=== PATIENT | male | born 1955 | race Hispanic/Latino ===

== ENCOUNTER 2018-02-03 07:31 | Observation (INO) | payer BC, OTHER ==
[2018-02-03 07:43] VITALS: BMI 27.7
--- NOTE | 2018-02-03 08:29 | CP.PCM.CON ---
History of Present Illness - History of Present Illness History of Present Illness: Patient is a 62 y/o male with no PMH, c/o of left knee pain following an injury which occurred at work on Saturday01/31/18. Dr. Nunez was consulted for orthopedic evaluation. 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 He experienced a sudden sharp pain at the posterior aspect of his knee which has progressively worsened since the time of his injury prompting his ER visit. The pain is intermittent and occasionally radiates down the posterior aspect of his leg. Weight bearing activities and stair climbing worsen his pain, while rest alleviates it. The pain is associated with swelling and he does not recall any bruising. He has taken Aleve and Tylenol with codiene without any relief of his pain. He denies any numbess or tingling down the LLE. He also denies CP/ SOB/N/V/D/NIETO/dysuria/melena. 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 Alcohol: None Home Situation {Lives}: With Family - CARDIAC Hx Cardiac Disorders: No - PULMONARY Hx Respiratory Disorders: No - NEUROLOGICAL Hx Neurological Disorder: No - HEENT Hx HEENT Problems: No - RENAL Hx Chronic Kidney Disease: No - ENDOCRINE/METABOLIC Hx Endocrine Disorders: No - HEMATOLOGICAL/ONCOLOGICAL Hx Blood Disorders: No - INTEGUMENTARY Hx Dermatological Problems: No - MUSCULOSKELETAL/RHEUMATOLOGICAL Hx Musculoskeletal Disorders: Yes Hx Back Pain: Yes - GASTROINTESTINAL Hx Gastrointestinal Disorders: Yes Other/Comment: Hiatal hernia - PSYCHIATRIC Hx Psychophysiologic Disorder: No Hx Substance Use: No - SURGICAL HISTORY Hx Surgeries: Yes Hx Cholecystectomy: Yes (open) Other/Comment: hiatal hernia repair - ANESTHESIA Hx Anesthesia: Yes Hx Anesthesia Reactions: No Hx Malignant Hyperthermia: No Has any member of the family had a problem w/ anesthesia?: No Meds Home Medications: Home Medication List Medication Instructions Recorded Confirmed Type oxyCODONE/Acetaminophen [Percocet 1 - 2 ea PO Q6 #30 tab 02/03/18 Rx 5/325 mg Tab] Allergies/Adverse Reactions: Allergies Allergy/AdvReac Type Severity Reaction Status Date / Time No Known Allergies Allergy Verified 02/03/18 07:53 - Medications Medications: none Physical Exam - Constitutional Appears: No Acute Distress - Head Exam Head Exam: ATRAUMATIC, NORMOCEPHALIC - Eye Exam Eye Exam: EOMI, Normal appearance, PERRL - ENT Exam ENT Exam: Mucous Membranes Moist - Neck Exam Neck exam: Positive for: Normal Inspection - Respiratory Exam Respiratory Exam: Clear to Auscultation Bilateral, NORMAL BREATHING PATTERN - GI/Abdominal Exam GI & Abdominal Exam: Soft. absent: Tenderness - Extremities Exam Additional comments: L knee: + tenderness medial joint line, + tenderness over hamstring tendons, + tenderness inferior pole of patella, mild swelling diffuse ROM 0-120 sensation intact S/DP/TN motor intact EHL/FHL/TA/G/Q, 4-/5 HS pedal pulses intact neg lachmans, neg ant/post drawer, neg valg/alexa stress test comp soft NT L knee: no tenderness, no effusion, no lesion, no swelling ROM 0-120 sensation intact S/DP/TN motor intact EHL/FHL/TA/G/Q/HS pedal pulses intact neg lachmans, neg ant/post drawer, neg valg/alexa stress test comp soft NT - Back Exam Back exam: paraspinal tenderness (R). absent: vertebral tenderness - Neurological Exam Neurological exam: Alert, Oriented x3 - Psychiatric Exam Psychiatric exam: Normal Affect, Normal Mood - Skin Skin Exam: Normal Color, Warm Results - Vital Signs Recent Vital Signs: Last Vital Signs Temp 97.7 F 02/03/18 07:43 Pulse 78 02/03/18 07:43 Resp 20 02/03/18 07:43 BP 145/86 02/03/18 07:43 Pulse Ox 96 02/03/18 07:43 - Labs Result Diagrams: 02/03/18 08:50 02/03/18 08:50 Assessment & Plan (1) Acute meniscal tear of left knee Assessment and Plan: Patient is a 62 y/o male with an acute meniscal tear following an injury -Dr. Nunez proposes a left knee diagnostic arthroscopy, partial medial meniscectomy, possible chondroplasty and all indicated procedures due to the patient's severe pain and limitation -Risks/ benefits and indications of the procedure were explained to the patient in detail. The patient expresses his understanding and agrees to proceed with the listed procedure -Above d/w Dr. Nunez in agreement Status: Acute Radiology Interpretation - Small Order Cutter Small Order Cutter:: Radiologist - Radiology Interpretation #2 Interpretation: MRI left knee History: Knee injury. Comparison: None available. Technique: Multi-echo multiplanar sequences were performed through the left knee without the use of intravenous contrast. Findings: Prominent thickening and heterogeneity with increased signal seen the visualized anterior cruciate ligament suggestive for a high-grade sprain with associated partial interstitial tearing. Clinical correlation. Posterior cruciate ligament is preserved. Globular increased signal seen within the posterior horn of the medial meniscus suggestive for intrasubstance degeneration and or intrasubstance partial tearing. Linear increased signal seen at the junction of the anterior horn and body of the lateral meniscus demonstrating apparent extension the articular surface demonstrated on series 7, image 25 concerning for a possible small tear. Additional blunting of tip of the body of the lateral meniscus. Medial collateral ligament is preserved. Lateral collateral ligament complex structures are preserved. Quadriceps tendon is preserved. Patellar tendon is preserved. Prominent focal cartilage thinning and loss overlying the medial patellar facet some of which extends to the subchondral bone suggestive for chondromalacia patella. Mild to moderate cartilage thinning and loss involving the medial compartment of the femorotibial joint space. Mild cartilage thinning and loss overlying the anterior aspect of the lateral femoral condyle. Small suprapatellar joint effusion. Impression: 1. Linear increased signal seen at the junction of the anterior horn and body of the lateral meniscus demonstrating apparent extension the articular surface demonstrated on series 7, image 25 concerning for a possible small tear. Additional blunting of tip of the body of the lateral meniscus. 2. Prominent thickening and heterogeneity with increased signal seen the visualized anterior cruciate ligament suggestive for a high-grade sprain with associated partial interstitial tearing. Clinical correlation. 3. Globular increased signal seen within the posterior horn of the medial meniscus suggestive for intrasubstance degeneration and or intrasubstance partial tearing. 4. Prominent focal cartilage thinning and loss overlying the medial patellar facet some of which extends to the subchondral bone suggestive for chondromalacia patella. 5. Mild to moderate cartilage thinning and loss involving the medial compartment of the femorotibial joint space. Mild cartilage thinning and loss overlying the anterior aspect of the lateral femoral condyle. 6. Small suprapatellar joint effusion. - Radiology Interpretation #3 Interpretation: PROCEDURE: Left Knee Radiographs. HISTORY: Posttraumatic left knee pain COMPARISON: None. FINDINGS: BONES: Normal. No fracture. JOINTS: No significant degenerative change. JOINT EFFUSION: None. OTHER FINDINGS: None. IMPRESSION: No acute findings related to/accounting for the clinical presentation.
[2018-02-03 08:58] LABS: BASO % 0.5 % (0.0-2.0); EOS # 0.2 K/uL (0.0-0.7); EOS % 1.8 % (0.0-4.0); HEMOGLOBIN 15.2 g/dL (12.0-18.0); LYMPH # 1.6 K/uL (1.0-4.3); LYMPH % 18.2 % (20.0-40.0); MEAN CELL VOLUME 86.5 fl (80.0-94.0); MEAN CORPUSCULAR HEMOGLOBIN 28.8 pg (27.0-31.0); MEAN CORPUSCULAR HGB CONC 33.2 g/dL (33.0-37.0); MEAN PLATELET VOLUME 9.2 fl (7.2-11.7); MONO # 0.5 K/uL (0.0-0.8); MONO % 5.8 % (0.0-10.0); NEUT # 6.6 K/uL (1.8-7.0); NEUT % 73.7 % (50.0-75.0); NRBC % 0.2 % (0.0-0.0); RBC 5.29 Mil/uL (4.40-5.90); RED CELL DISTRIBUTION WIDTH 15.3 % (11.5-14.5); WHITE BLOOD COUNT 8.9 K/uL (4.8-10.8)
[2018-02-03 09:05] LABS: INR 0.2 (0.9-1.2); PROTHROMBIN TIME 11.3 Seconds (9.8-13.1)
[2018-02-03 09:06] LABS: ALB/GLOB RATIO 1.3 (1.0-2.1); ALBUMIN 4.2 g/dL (3.5-5.0); ALT/SGPT 41 U/L (21-72); AST/SGOT 22 U/L (17-59); BLOOD UREA NITROGEN 18 mg/dl (9-20); CALCIUM 9.5 mg/dL (8.4-10.2); GFR AFRICAN-AMERICAN > 60; GFR NON-AFRICAN AMERICAN > 60
--- NOTE | 2018-02-03 09:12 | ED PDOC ---
Lower Extremity Pain/Injury Time Seen by Provider: 02/03/18 08:06 Chief Complaint (Nursing): Lower Extremity Problem/Injury Chief Complaint (Provider): Left knee pain History Per: Patient History/Exam Limitations: no limitations Onset/Duration Of Symptoms: Days (x4) Current Symptoms Are (Timing): Still Present Additional Complaint(s): Donovan Schulz is a 62 year old male, with no significant past medical history , who presents to the emergency department complaining of left knee pain onset for x4 days. Patient reports on Saturday he jumped and popped his left knee. Patient is complaining of pain to the posterior knee. He denies any paresthesias or weakness. No further medical complaints. PMD: None provided. Past Medical History Reviewed: Historical Data, Nursing Documentation, Vital Signs Vital Signs: Last Vital Signs Temp 97.7 F 02/03/18 07:43 Pulse 78 02/03/18 07:43 Resp 20 02/03/18 07:43 BP 145/86 02/03/18 07:43 Pulse Ox 96 02/03/18 07:43 - Medical History PMH: No Chronic Diseases Denies: Chronic Kidney Disease - Surgical History Surgical History: Cholecystectomy (open) - Family History Family History: States: No Known Family Hx - Social History Current smoker - smoking cessation education provided: No Alcohol: None Drugs: Denies - Home Medications Home Medications: Ambulatory Orders Medication Instructions Recorded No Known Home Med 02/03/18 - Allergies Allergies/Adverse Reactions: Allergies Allergy/AdvReac Type Severity Reaction Status Date / Time No Known Allergies Allergy Verified 02/03/18 07:53 Review of Systems ROS Statement: Except As Marked, All Systems Reviewed And Found Negative Musculoskeletal: Positive for: Leg Pain (left knee) Physical Exam - Reviewed Nursing Documentation Reviewed: Yes Vital Signs Reviewed: Yes - Physical Exam Appears: Positive for: Well, Non-toxic, No Acute Distress Head Exam: Positive for: ATRAUMATIC, NORMOCEPHALIC Skin: Positive for: Normal Color, Warm, Dry Eye Exam: Positive for: Normal appearance, EOMI, PERRL Neck: Positive for: Painless ROM Cardiovascular/Chest: Positive for: Regular Rate, Rhythm. Negative for: Murmur Respiratory: Positive for: Normal Breath Sounds. Negative for: Respiratory Distress Gastrointestinal/Abdominal: Positive for: Normal Exam, Soft. Negative for: Tenderness Back: Positive for: Normal Inspection. Negative for: L CVA Tenderness, R CVA Tenderness, Vertebral Tenderness Extremity: Positive for: Tenderness (to posterior left knee and medially). Negative for: Normal ROM (decreased ROM to left knee secondary to pain), Deformity, Swelling (or erythema) Neurologic/Psych: Positive for: Alert, Oriented. Negative for: Motor/Sensory Deficits - Laboratory Results Result Diagrams: 02/03/18 08:50 02/03/18 08:50 - ECG O2 Sat by Pulse Oximetry: 96 (RA) Pulse Ox Interpretation: Normal Medical Decision Making Medical Decision Making: Initial Impression: Left knee injury Initial Plan: --Type and screen --EKG --CMP --CBC w/ differential --PTT --PT --Chest portable [RAD] --Knee w/o contrast LEFT [mri] --Reevaluation 10:37 Left knee MRI Findings: Prominent thickening and heterogeneity with increased signal seen the visualized anterior cruciate ligament suggestive for a high-grade sprain with associated partial interstitial tearing. Clinical correlation. Posterior cruciate ligament is preserved. Globular increased signal seen within the posterior horn of the medial meniscus suggestive for intrasubstance degeneration and or intrasubstance partial tearing. Linear increased signal seen at the junction of the anterior horn and body of the lateral meniscus demonstrating apparent extension the articular surface demonstrated on series 7, image 25 concerning for a possible small tear. Additional blunting of tip of the body of the lateral meniscus. Medial collateral ligament is preserved. Lateral collateral ligament complex structures are preserved. Quadriceps tendon is preserved. Patellar tendon is preserved. Prominent focal cartilage thinning and loss overlying the medial patellar facet some of which extends to the subchondral bone suggestive for chondromalacia patella. Mild to moderate cartilage thinning and loss involving the medial compartment of the femorotibial joint space. Mild cartilage thinning and loss overlying the anterior aspect of the lateral femoral condyle. Small suprapatellar joint effusion. Impression: 1. Linear increased signal seen at the junction of the anterior horn and body of the lateral meniscus demonstrating apparent extension the articular surface demonstrated on series 7, image 25 concerning for a possible small tear. Additional blunting of tip of the body of the lateral meniscus. 2. Prominent thickening and heterogeneity with increased signal seen the visualized anterior cruciate ligament suggestive for a high-grade sprain with associated partial interstitial tearing. Clinical correlation. 3. Globular increased signal seen within the posterior horn of the medial meniscus suggestive for intrasubstance degeneration and or intrasubstance partial tearing. 4. Prominent focal cartilage thinning and loss overlying the medial patellar facet some of which extends to the subchondral bone suggestive for chondromalacia patella. 5. Mild to moderate cartilage thinning and loss involving the medial compartment of the femorotibial joint space. Mild cartilage thinning and loss overlying the anterior aspect of the lateral femoral condyle. 6. Small suprapatellar joint effusion. 10:56 CXR FINDINGS: LUNGS: No active pulmonary disease. PLEURA: No significant pleural effusion identified, no pneumothorax apparent. CARDIOVASCULAR: Cardiomegaly. No evidence of acute, significant cardiovascular disease. OSSEOUS STRUCTURES: No significant abnormalities. VISUALIZED UPPER ABDOMEN: Normal. OTHER FINDINGS: None. IMPRESSION: No active disease. 10:58 Left knee X-Ray FINDINGS: BONES: Normal. No fracture. JOINTS: No significant degenerative change. JOINT EFFUSION: None. OTHER FINDINGS: None. IMPRESSION: No acute findings related to/accounting for the clinical presentation. Scribe Attestation: Documented by Sharad Dunbar, acting as a scribe for Nayeli Andres MD Provider Scribe Attestation: All medical record entries made by the Scribe were at my direction and personally dictated by me. I have reviewed the chart and agree that the record accurately reflects my personal performance of the history, physical exam, medical decision making, and the department course for this patient. I have also personally directed, reviewed, and agree with the discharge instructions and disposition. Disposition - Disposition Forms: [employer] (Indonesian)
--- NOTE | 2018-02-03 10:39 | MRI ---
MRI left knee History: Knee injury. Comparison: None available. Technique: Multi-echo multiplanar sequences were performed through the left knee without the use of intravenous contrast. Findings: Prominent thickening and heterogeneity with increased signal seen the visualized anterior cruciate ligament suggestive for a high-grade sprain with associated partial interstitial tearing. Clinical correlation. Posterior cruciate ligament is preserved. Globular increased signal seen within the posterior horn of the medial meniscus suggestive for intrasubstance degeneration and or intrasubstance partial tearing. Linear increased signal seen at the junction of the anterior horn and body of the lateral meniscus demonstrating apparent extension the articular surface demonstrated on series 7, image 25 concerning for a possible small tear. Additional blunting of tip of the body of the lateral meniscus. Medial collateral ligament is preserved. Lateral collateral ligament complex structures are preserved. Quadriceps tendon is preserved. Patellar tendon is preserved. Prominent focal cartilage thinning and loss overlying the medial patellar facet some of which extends to the subchondral bone suggestive for chondromalacia patella. Mild to moderate cartilage thinning and loss involving the medial compartment of the femorotibial joint space. Mild cartilage thinning and loss overlying the anterior aspect of the lateral femoral condyle. Small suprapatellar joint effusion. Impression: 1. Linear increased signal seen at the junction of the anterior horn and body of the lateral meniscus demonstrating apparent extension the articular surface demonstrated on series 7, image 25 concerning for a possible small tear. Additional blunting of tip of the body of the lateral meniscus. 2. Prominent thickening and heterogeneity with increased signal seen the visualized anterior cruciate ligament suggestive for a high-grade sprain with associated partial interstitial tearing. Clinical correlation. 3. Globular increased signal seen within the posterior horn of the medial meniscus suggestive for intrasubstance degeneration and or intrasubstance partial tearing. 4. Prominent focal cartilage thinning and loss overlying the medial patellar facet some of which extends to the subchondral bone suggestive for chondromalacia patella. 5. Mild to moderate cartilage thinning and loss involving the medial compartment of the femorotibial joint space. Mild cartilage thinning and loss overlying the anterior aspect of the lateral femoral condyle. 6. Small suprapatellar joint effusion.
--- NOTE | 2018-02-03 10:58 | RAD ---
HISTORY: Medical clearance COMPARISON: No prior. FINDINGS: LUNGS: No active pulmonary disease. PLEURA: No significant pleural effusion identified, no pneumothorax apparent. CARDIOVASCULAR: Cardiomegaly. No evidence of acute, significant cardiovascular disease. OSSEOUS STRUCTURES: No significant abnormalities. VISUALIZED UPPER ABDOMEN: Normal. OTHER FINDINGS: None. IMPRESSION: No active disease.
--- NOTE | 2018-02-03 10:59 | RAD ---
PROCEDURE: Left Knee Radiographs. HISTORY: Posttraumatic left knee pain COMPARISON: None. FINDINGS: BONES: Normal. No fracture. JOINTS: No significant degenerative change. JOINT EFFUSION: None. OTHER FINDINGS: None. IMPRESSION: No acute findings related to/accounting for the clinical presentation.
[2018-02-03 12:04] VITALS: RESP 18
[2018-02-03] MEDS ORDERED: Lidocaine Hydrochloride 1% 20 ML ONE (12:47)
[2018-02-03] MEDS ORDERED: EPINEPHrine 1 mg/ml (1:1000) Inj ONE (12:47)
[2018-02-03] MEDS ORDERED: Bacitracin Ointment 30 GM TUBE ONE (12:48)
[2018-02-03] MEDS ORDERED: Lidocaine 4% (Laryng-O-Jet) Kit MM ONE (13:05)
[2018-02-03] MEDS ORDERED: Succinylcholine 200 mg/10 ml Inj IV ONE (13:05)
[2018-02-03] MEDS ORDERED: Midazolam 2 MG/2 ML VIAL ONE (13:05)
[2018-02-03] MEDS ORDERED: Propofol 10 mg/ml Inj (20 ML) ONE (13:05)
[2018-02-03] MEDS ORDERED: Dexamethasone 4 mg/1 ml ONE (13:05)
[2018-02-03] MEDS ORDERED: Rocuronium 10 mg/ml (5 ml) ONE (13:11)
[2018-02-03] MEDS ORDERED: Lactated Ringer's 1,000 ML IV ONE ×2 (13:50→14:30)
[2018-02-03] MEDS ORDERED: Sterile Water 10 ML IV ONE (14:12)
[2018-02-03] MEDS ORDERED: ePHEDrine 50 mg/ml Inj ONE (14:12)
[2018-02-03] MEDS ORDERED: Lidocaine 1% Inj (20ml) IJ ONE (14:27)
[2018-02-03] MEDS ORDERED: Oxycodone/Acetaminophen 5/325 mg Tab PO PRN (14:46)
[2018-02-03] MEDS ORDERED: Morphine 1 mg/ml preservative-free Inj(Duramorph) ONE (14:56)
[2018-02-03] MEDS ORDERED: methylPREDNISolone Depo 80 mg/ml Inj ONE (14:56)
[2018-02-03] MEDS ORDERED: Bupivacaine 0.5% Inj(30mL) ONE (14:57)
[2018-02-03] MEDS ORDERED: Bacitracin OINT 15GM TOP ONE (15:05)
[2018-02-03] MEDS ORDERED: HYDROmorphone 0.5 mg/0.5 ml ISec IVP PRN (15:27)
[2018-02-03] MEDS ORDERED: Lactated Ringer's 1,000 ML IV SCH (15:30)
--- NOTE | 2018-02-03 15:41 | CP.PCM.HP ---
History of Present Illness - History of Present Illness History of Present Illness: Orthopedic ER H&P Patient is a 62 y/o male with no PMH, c/o of left knee pain following an injury which occurred at work on Saturday01/31/18. Dr. Nunez was consulted for orthopedic evaluation. 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 He experienced a sudden sharp pain at the posterior aspect of his knee which has progressively worsened since the time of his injury prompting his ER visit. The pain is intermittent and occasionally radiates down the posterior aspect of his leg. Weight bearing activities and stair climbing worsen his pain, while rest alleviates it. The pain is associated with swelling and he does not recall any bruising. He has taken Aleve and Tylenol with codiene without any relief of his pain. He denies any numbess or tingling down the LLE. He also denies CP/ SOB/N/V/D/NIETO/dysuria/melena. 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 Alcohol: None Home Situation {Lives}: With Family - CARDIAC Hx Cardiac Disorders: No - PULMONARY Hx Respiratory Disorders: No - NEUROLOGICAL Hx Neurological Disorder: No - HEENT Hx HEENT Problems: No - RENAL Hx Chronic Kidney Disease: No - ENDOCRINE/METABOLIC Hx Endocrine Disorders: No - HEMATOLOGICAL/ONCOLOGICAL Hx Blood Disorders: No - INTEGUMENTARY Hx Dermatological Problems: No - MUSCULOSKELETAL/RHEUMATOLOGICAL Hx Musculoskeletal Disorders: Yes Hx Back Pain: Yes - GASTROINTESTINAL Hx Gastrointestinal Disorders: Yes Other/Comment: Hiatal hernia - PSYCHIATRIC Hx Psychophysiologic Disorder: No Hx Substance Use: No - SURGICAL HISTORY Hx Surgeries: Yes Hx Cholecystectomy: Yes (open) Other/Comment: hiatal hernia repair - ANESTHESIA Hx Anesthesia: Yes Hx Anesthesia Reactions: No Hx Malignant Hyperthermia: No Has any member of the family had a problem w/ anesthesia?: No Meds Home Medications: Home Medication List Medication Instructions Recorded Confirmed Type oxyCODONE/Acetaminophen [Percocet 1 - 2 ea PO Q6 #30 tab 02/03/18 Rx 5/325 mg Tab] Allergies/Adverse Reactions: Allergies Allergy/AdvReac Type Severity Reaction Status Date / Time No Known Allergies Allergy Verified 02/03/18 07:53 Physical Exam - Constitutional Appears: No Acute Distress - Head Exam Head Exam: ATRAUMATIC, NORMOCEPHALIC - Eye Exam Eye Exam: EOMI, Normal appearance, PERRL - ENT Exam ENT Exam: Mucous Membranes Moist - Respiratory Exam Respiratory Exam: Clear to Auscultation Bilateral, NORMAL BREATHING PATTERN - GI/Abdominal Exam GI & Abdominal Exam: Normal Bowel Sounds, Soft - Extremities Exam Additional comments: L knee: + tenderness medial joint line, + tenderness over hamstring tendons, + tenderness inferior pole of patella, mild swelling diffuse ROM 0-120 sensation intact S/DP/TN motor intact EHL/FHL/TA/G/Q, 4-/5 HS pedal pulses intact neg lachmans, neg ant/post drawer, neg valg/alexa stress test comp soft NT R knee: no tenderness, no effusion, no lesion, no swelling ROM 0-120 sensation intact S/DP/TN motor intact EHL/FHL/TA/G/Q/HS pedal pulses intact neg lachmans, neg ant/post drawer, neg valg/alexa stress test comp soft NT - Neurological Exam Neurological exam: Alert, Oriented x3 - Psychiatric Exam Psychiatric exam: Normal Affect, Normal Mood - Skin Skin Exam: Normal Color, Warm Results - Vital Signs Recent Vital Signs: Last Vital Signs Temp 98.3 F 02/03/18 12:47 Pulse 84 02/03/18 12:47 Resp 18 02/03/18 12:47 BP 142/91 H 02/03/18 12:47 Pulse Ox 100 02/03/18 11:58 - Labs Result Diagrams: 02/03/18 08:50 02/03/18 08:50 Labs: Laboratory Results - last 24 hr 02/03/18 02/03/18 02/03/18 08:50 08:50 08:50 WBC 8.9 RBC 5.29 Hgb 15.2 Hct 45.8 MCV 86.5 MCH 28.8 MCHC 33.2 RDW 15.3 H Plt Count 222 MPV 9.2 Neut % (Auto) 73.7 Lymph % (Auto) 18.2 L [place] % (Auto) 5.8 Eos % (Auto) 1.8 Baso % (Auto) 0.5 Neut # (Auto) 6.6 Lymph # (Auto) 1.6 [place] # (Auto) 0.5 Eos # (Auto) 0.2 Baso # (Auto) 0.0 PT 11.3 INR 0.2 L APTT 31.0 Sodium 149 H Potassium 4.6 Chloride 105 Carbon Dioxide 26 Anion Gap 23 H BUN 18 Creatinine 0.8 Est GFR ( Amer) > 60 Est GFR (Non-Af Amer) > 60 POC Glucose (mg/dL) Random Glucose 112 H Calcium 9.5 Total Bilirubin 0.6 AST 22 ALT 41 Alkaline Phosphatase 59 Total Protein 7.4 Albumin 4.2 Globulin 3.2 Albumin/Globulin Ratio 1.3 Blood Type Antibody Screen BBK History Checked 02/03/18 02/03/18 08:50 11:56 WBC RBC Hgb Hct MCV MCH MCHC RDW Plt Count MPV Neut % (Auto) Lymph % (Auto) [place] % (Auto) Eos % (Auto) Baso % (Auto) Neut # (Auto) Lymph # (Auto) [place] # (Auto) Eos # (Auto) Baso # (Auto) PT INR APTT Sodium Potassium Chloride Carbon Dioxide Anion Gap BUN Creatinine Est GFR ( Amer) Est GFR (Non-Af Amer) POC Glucose (mg/dL) 70 Random Glucose Calcium Total Bilirubin AST ALT Alkaline Phosphatase Total Protein Albumin Globulin Albumin/Globulin Ratio Blood Type O POSITIVE Antibody Screen Negative BBK History Checked No verified bt Assessment & Plan (1) Acute meniscal tear of left knee Assessment and Plan: Patient is a 62 y/o male with an acute meniscal tear following an injury -Dr. Nunez proposes a left knee diagnostic arthroscopy, partial medial meniscectomy, possible chondroplasty and all indicated procedures due to the patient's severe pain and limitation -Risks/ benefits and indications of the procedure were explained to the patient in detail. The patient expresses his understanding and agrees to proceed with the listed procedure -Above d/w Dr. Nunez in agreement Status: Acute Radiology Interpretation - Commercial Coordinator Commercial Coordinator:: Radiologist - Notes: Notes:: MRI left knee History: Knee injury. Comparison: None available. Technique: Multi-echo multiplanar sequences were performed through the left knee without the use of intravenous contrast. Findings: Prominent thickening and heterogeneity with increased signal seen the visualized anterior cruciate ligament suggestive for a high-grade sprain with associated partial interstitial tearing. Clinical correlation. Posterior cruciate ligament is preserved. Globular increased signal seen within the posterior horn of the medial meniscus suggestive for intrasubstance degeneration and or intrasubstance partial tearing. Linear increased signal seen at the junction of the anterior horn and body of the lateral meniscus demonstrating apparent extension the articular surface demonstrated on series 7, image 25 concerning for a possible small tear. Additional blunting of tip of the body of the lateral meniscus. Medial collateral ligament is preserved. Lateral collateral ligament complex structures are preserved. Quadriceps tendon is preserved. Patellar tendon is preserved. Prominent focal cartilage thinning and loss overlying the medial patellar facet some of which extends to the subchondral bone suggestive for chondromalacia patella. Mild to moderate cartilage thinning and loss involving the medial compartment of the femorotibial joint space. Mild cartilage thinning and loss overlying the anterior aspect of the lateral femoral condyle. Small suprapatellar joint effusion. Impression: 1. Linear increased signal seen at the junction of the anterior horn and body of the lateral meniscus demonstrating apparent extension the articular surface demonstrated on series 7, image 25 concerning for a possible small tear. Additional blunting of tip of the body of the lateral meniscus. 2. Prominent thickening and heterogeneity with increased signal seen the visualized anterior cruciate ligament suggestive for a high-grade sprain with associated partial interstitial tearing. Clinical correlation. 3. Globular increased signal seen within the posterior horn of the medial meniscus suggestive for intrasubstance degeneration and or intrasubstance partial tearing. 4. Prominent focal cartilage thinning and loss overlying the medial patellar facet some of which extends to the subchondral bone suggestive for chondromalacia patella. 5. Mild to moderate cartilage thinning and loss involving the medial compartment of the femorotibial joint space. Mild cartilage thinning and loss overlying the anterior aspect of the lateral femoral condyle. 6. Small suprapatellar joint effusion. PROCEDURE: Left Knee Radiographs. HISTORY: Posttraumatic left knee pain COMPARISON: None. FINDINGS: BONES: Normal. No fracture. JOINTS: No significant degenerative change. JOINT EFFUSION: None. OTHER FINDINGS: None. IMPRESSION: No acute findings related to/accounting for the clinical presentation.
--- NOTE | 2018-02-03 16:21 | PCM.SURG1 ---
Surgeon's Initial Post Op Note - Surgeon's Notes Surgeon: Enrique Brigadier: KALI Gotti Type of Anesthesia: General Endo Anesthesia Administered By: DR Jackson Pre-Operative Diagnosis: post traumatic derangement L knee- s/p work related injury Saturday, 01/31, during pts occupation as employee of [employer] Operative Findings: chondral fx L trochlea (femur). tear medial meniscus/tear lateral meniscus. tricompartmental synovitis Post-Operative Diagnosis: as above Operation Performed: surg arthroscopy- microfracture/abrasion arthroplasty l; knee. surg arthroscopy- parial tricomparmtnetal synovectomy. surg arthroscopy partial medial/lateral meniscectomy. intraartuicular injection Specimen/Specimens Removed: synovium/cartilage/bone Estimated Blood Loss: EBL {In ML}: 10 Blood Products Given: N/A Drains Used: No Drains Post-Op Condition: Good Date of Surgery/Procedure: 02/03/18 Time of Surgery/Procedure: 14:25 (time in room/aneatshesia indcution [id number])
[2018-02-03 17:43] VITALS: BP 120/74; PULSE 75; TEMP 97.6; O2SAT 96
--- NOTE | 2018-02-04 10:54 | CARD ---
APPROVED REPORT EKG Measurement Heart [id number] CT 144P19 [id number] <Conclusion> Normal sinus rhythm Normal ECG
--- NOTE | 2018-02-06 08:51 | OP ---
PROCEDURE DATE: 02/03/2018 PREOPERATIVE DIAGNOSIS: Posttraumatic derangement of the left knee. POSTOPERATIVE DIAGNOSES: 1. Chondral fracture femoral trochlea. 2. Tear medial meniscus tear, tear lateral meniscus. 3. Tricompartmental synovitis. OPERATIVE PROCEDURES: 1. Surgical arthroplasty microfracture/abrasion arthroplasty, femoral trochlea. 2. Surgical arthroscopy partial, medial and lateral meniscectomy. 3. Surgical arthroscopy with partial tricompartmental synovectomy, intraarticular injection, application of Gerard Ware compression dressing and knee immobilizer. SURGEON: Rohit Nunez MD ELECTROTHERAPIST: Zamzam Penny, certified registered nursing podiatry assistant. TYPE OF ANESTHESIA: General endotracheal anesthesia. ANESTHESIOLOGIST: Dr. Jackson. COMPLICATIONS: No complications. DRAINS: No drains. ESTIMATED BLOOD LOSS: Approximately 10 mL. OPERATIVE INDICATION: Donovan Schulz is a gentleman who presents to the emergency room at [facility] with severe pain, restricted range of motion to the knee and inability to ambulate. The patient presents with his Corrine. The patient was involved in a work related injury for the [employer] which occurred on Saturday01/31/2018. The patient had sustained a direct fall on the knee in his job for the [employer]. The patient presents with severe pain and restricted range of motion. The patient presented to the ER, x-rays are negative for acute fracture. On MRI scan shows evidence of bilateral medial and lateral left knee meniscal derangements, ACL sprain, and evidence of chondral damage. After thoroughly discussing the pros, cons, risks and benefits of surgical approach and the advantage of acute surgery proposed to the injury, the possibility of mechanical failure, infection, thromboembolic disease, secondary or tertiary surgery were discussed. The concept that secondary or tertiary surgery may be required was discussed. The pros, cons, risks and benefits of the surgical approach were discussed at length with the patient and his , concept of conservative management was discussed because of the pathology and the unbearable nature of the pain, the patient is thinking of surgery as an emergency after emergent admission to the ER. It should be noted that this patient had no prior history of knee complaints or problems prior to the injury that this patient had sustained at work at the [employer]. DESCRIPTION OF PROCEDURE: After having obtained informed consent in the above fashion, after having identified side, site and procedure, and critical pause/time-out, after satisfactory induction of the anesthetic, the patient identified as Donovan Schulz in the supine position with all bony prominence well padded. The left lower extremity was prepped and free draped in the usual fashion for lower extremity surgery. The tourniquet had been applied, but was not yet inflated. After exsanguinated the limb using 6-inch Esmarch bandage, the tourniquet which had been applied was inflated to 350 mmHg 10 mL with 1% lidocaine without epinephrine with using a #11 blade followed by spreading, followed by suction with a blunt trocar, a arthroscope was introduced. Examination of the was accomplished using a 18-gauge spinal needle, followed by #11 blade, followed by spreading, followed by suction with a blunt trocar. With the arthroscope anterolaterally, a careful partial tricompartmental synovectomy was accomplished with improved visualization . Hemostasis controlled with the Aquamantys. It should be noted that the striker and the tourniquet had been applied and after exsanguination was inflated. A third arthroscope portal was accomplished using an 18 gauge spinal needle, followed by # 11 blade, followed by spreading. The arthroscope entered laterally, a careful partial tricompartmental synovectomy was accomplished. The patient exhibits no alaina hemorrhage in the joint but there is extreme synovitis and irritation of the synovial lining tissue. This having been accomplished, the arthroscope entered laterally and careful partial tricompartmental synovectomy was completed. Bleeding points were controlled with the wand. With the arthroscope anterolaterally, the anterior cruciate ligament was explored and visualized and there was found to be evidence of high grade sprain. There is no evidence of complete rupture. It was discussed with the patient that he may require in the future ACL reconstruction. With the arthroscope anterolaterally, valgus stress the posterior medial aspect and medial meniscus tear of the inner free edge of the medial meniscus. The arthroscope was now transferred jessica medially and examined with the surgeon inserting a general valgus stress medial collateral ligament which is intact. A careful partial medial meniscectomy was accomplished using a combination of straight biting basket forceps and side biting basket forceps. With arthroscope anteromedially, a careful partial medial meniscectomy was accomplished. The inferior edge was the arthroscope anterolaterally, with the knee in figure of 4 position, the synovial tear of the inner free edge of the lateral meniscus. With the arthroscope anterolaterally with the knee in figure of 4 position the tear of the lateral meniscus extending from the mid aspect of the posterior . The arthroscope again was in the mid lateral portal using a combination of straight biting basket forceps and side biting basket forceps, a partial lateral meniscectomy was accomplished. The inner free edge of the menisci was smoothed using the arthroscopic wand. This having been accomplished with the arthroscope anterolaterally, careful partial tricompartmental synovectomy was completed. Bleeding ports controlled with the wand. With the arthroscope anterolaterally now with the knee in approximately 30 degree short of extension, evidence of chondral fracture nearing the femoral trochlea. The arthroscope was transferred anterolaterally and using the arthroscopic shaver an abrasion chondroplasty was accomplished. At this point in time, after removing all loose cartilaginous fragments it was found that the chondral fracture is full thickness down to the subchondral bone plate. With the arthroscope anteromedially using arthroscopic pick a microfracture technique was accomplished configuration with the arthroscopic pick, using the combination of the 3.4 mm , the arthroscopic pick is employed in a honeycomb type fashion. The arthroscopic pick having been employed in a honeycomb type fashion, microfracture was accomplished. The wound was thoroughly irrigated. Bleeding ports controlled with the arthroscopic wand. Closures in layers with interrupted Vicryl and nylon. Intraarticular injection offered, Gerard Ware compressing dressing and knee immobilizer was applied. Rohit Nunez MD
== END 2018-02-03 18:00 | disposition home or self-care (01) ==
LOC: H.ER 07:31 → H.ERHOLD 11:46
PROVIDERS: ADMIT Orthopaedic Surgery; ATTEND Orthopaedic Surgery
DX: S83.282A Other tear of lateral meniscus, current injury, left knee, initial encounter (principal); S83.242A Other tear of medial meniscus, current injury, left knee, initial encounter; M25.462 Effusion, left knee; X50.9XXA Other and unspecified overexertion or strenuous movements or postures, initial encounter; M65.9 Synovitis and tenosynovitis, unspecified; Y99.0 Civilian activity done for income or pay; S83.512A Sprain of anterior cruciate ligament of left knee, initial encounter
CPT/HCPCS: 29879; 29880; 71045; 73562; 73721; 80053; 82948; 85025; 85610; 85730; 86850; 86900; 88305; 93005; 97161; 99285; G0378; J0171; J0330; J0690; J1040; J1100; J2001; J2250; J2270; J2704; J2765; J3010; J7030; J7120